=== PATIENT | female | born 1945 | race Caucasian/White ===

== ENCOUNTER 2019-05-11 19:14 | Inpatient (IN) | payer BC, MEDICAID ==
[~2019-05-11] VITALS: Ht 152.4 cm; Wt 72.6 kg
[2019-05-11 19:20] VITALS: BP 175/90
--- NOTE | 2019-05-11 19:21 | NUR ---
PT KIT ALS. TAKEN TO BED 11
--- NOTE | 2019-05-11 19:30 | NUR ---
PT BIBA C/O HEADACHE AND DIZZINESS X1 HR. PT STATES DIZZINESS UPON STANDING. DENIES BLURRED VISION. 8/10 ACHING PAIN. RR EVEN AND UNLABORED. PT CALM AND PLEASANT, SITTING IN BED POSITIONED FOR COMFORT. BED LOCKED AND IN LOW POSITION. VSS. MEDHX: HTN, AFIB, HLD ALLERGIES: NKA
[2019-05-11] MEDS ORDERED: MORPHINE SULFATE 2 MG/ML SYR IVP ONE (19:55)
[2019-05-11] MEDS ORDERED: ONDANSETRON 4 MG/2 ML VIAL IVP ONE (19:55)
[2019-05-11 20:18] LABS: BASOPHILS # (AUTO) 0.1 K/uL (0.00-0.22); EOSINOPHILS # (AUTO) 0.4 K/uL (0-0.4); HEMATOCRIT 33.8 % (36-48); HEMOGLOBIN 11.6 g/dL (12.0-16.0); LYMPHOCYTES # (AUTO) 2.9 K/uL (2.5-16.5); LYMPHOCYTES % (AUTO) 42.7 % (20.5-51.1); MEAN CORPUSCULAR HEMOGLOBIN 32 pg (27-31); MEAN CORPUSCULAR HGB CONC 34 g/dL (33-37); MEAN CORPUSCULAR VOLUME 92.9 fL (80-94); MONOCYTES # (AUTO) 0.6 K/uL (0.8-1.0); MONOCYTES % (AUTO) 8.6 % (1.7-9.3); NEUTROPHILS # (AUTO) 2.8 K/uL (1.8-7.7); NEUTROPHILS % (AUTO) 41.7 % (42.2-75.2); PLATELET COUNT (AUTO) 283 K/uL (140-450); RED BLOOD CELL COUNT(AUTO) 3.64 MIL/uL (4.20-5.40); WHITE BLOOD COUNT (AUTO) 6.8 K/uL (4.8-10.8)
--- NOTE | 2019-05-11 20:32 | NUR ---
PT STATES NO RELIEF OF PAIN AFTER MEDICATION. 8/10 PAIN.
--- NOTE | 2019-05-11 20:36 | NUR ---
PT TO CT VIA WHEELCHAIR.
--- NOTE | 2019-05-11 20:36 | NUR ---
PT TAKEN TO CT
[2019-05-11 20:48] LABS: POTASSIUM 4.1 mmol/L (3.5-5.1); SODIUM SERUM 127 mmol/L (136-145)
[2019-05-11 20:49] LABS: ANION GAP 10.4 (8-16); ASPARTATE AMINOTRANSFERASE 20 U/L (15-37); CARBON DIOXIDE 27.7 mmol/L (21-32); CHLORIDE 93 mmol/L (98-107); CREATININE 0.6 mg/dL (0.6-1.3); GLUCOSE 106 mg/dL (74-106); TOTAL BILIRUBIN 0.3 mg/dL (0.0-1.0); UREA NITROGEN, BLOOD 10 mg/dL (7-18)
[2019-05-11 20:50] LABS: ALBUMIN 3.5 g/dL (3.4-5.0); LIPASE 113 U/L (73-393)
[2019-05-11 21:00] LABS: CREATINE KINASE MB 1.1 ng/mL (0-3.6)
--- NOTE | 2019-05-11 21:10 | NUR ---
PT RESTING IN BED WITH EYES CLOSED, VISIBLE RISE AND FALL OF THE CHEST. PT DENIES DIZZINESS AT THIS TIME. VSS. WILL CONTINUE TO MONITOR.
[2019-05-11] MEDS ORDERED: NACL 0.9% 1,000 ML IV ONE (21:40)
[2019-05-11] MEDS ORDERED: ESCI10TA PO (21:58)
[2019-05-11] MEDS ORDERED: NAPR-54 PO (21:58)
[2019-05-11] MEDS ORDERED: PROP20TA29 PO (21:58)
[2019-05-11] MEDS ORDERED: AMLO5TAB PO (21:58)
[2019-05-11] MEDS ORDERED: ASPI-1718 PO (21:58)
[2019-05-11] MEDS ORDERED: LOVA20TA8 PO (21:58)
[2019-05-11] MEDS ORDERED: LOSA100T51 PO (21:58)
[2019-05-11] MEDS ORDERED: BENA20TA PO (21:58)
[2019-05-11] MEDS ORDERED: ACETAMINOPHEN 325 MG TAB PO PRN (22:30)
[2019-05-11] MEDS ORDERED: ONDANSETRON 4 MG/2 ML VIAL IM/IVP PRN (22:30)
[2019-05-11] MEDS ORDERED: HYDROcodone/APAP 7.5/325 MG 1 TAB PO PRN (22:30)
[2019-05-11] MEDS ORDERED: DOCUSATE SODIUM 100 MG GELCAP PO PRN (22:30)
[2019-05-11 22:40] VITALS: BP 149/70
--- NOTE | 2019-05-11 22:40 | NUR ---
RECEIVED PT FROM ER NURSE. PT CAME IN [facility] AND ABLE TO AMBULATE TO [facility] BED. FAMILY AT BEDSIDE. NO SOB NOTED. DENIES PAIN. IV SITE ON RAC, G20, PATENT, INTACT AND ASYMPTOMATIC. SKIN INTACT, WARM AND DRY TO TOUCH. MRSA SWAB DONE, VS CHECKED, WITHIN PT'S BASELINE. BOARD UPDATED, ORIENT ROOM TO PT. ENCOURAGE TO USE CALL LIGHT. BED IN LOW POSITION, CALL LIGHT WITHIN REACH. WILL CONTINUE TO MONITOR.
--- NOTE | 2019-05-11 22:52 | NUR ---
Patient will be admitted to care of DR ORELLANA. Admited to TELE. Will go to room 127B. Belongings list completed. Report to ANDRES IVEY.
[2019-05-11] MEDS: NACL 0.9% 1,000 ML IV SCH (23:23)
[2019-05-11] MEDS ORDERED: DONE5TAB34 PO (23:37)
[2019-05-11] MEDS ORDERED: VITD1000 PO (23:37)
[2019-05-11 23:40] LABS: APPEARANCE,URINE CLEAR (CLEAR); BILIRUBIN,URINE NEGATIVE (NEGATIVE); BLOOD, URINE TRACE-I (NEGATIVE); COLOR,URINE YELLOW (YELLOW); LEUKOCYTE ESTERASE ,URINE TRACE (NEGATIVE); NITRITE, URINE NEGATIVE (NEGATIVE); UGLUCOSE NEGATIVE (NEGATIVE)
[2019-05-11] MEDS ORDERED: MECLIZINE 25 MG TAB PO PRN (23:45)
[2019-05-11 23:57] LABS: PROTHROMBIN TIME 9.6 secs (10.8-13.4)
[2019-05-12] VITALS: BP 155/64
[2019-05-12 00:10] LABS: MAGNESIUM 1.8 mg/dL (1.8-2.4); PHOSPHORUS 4.2 mg/dL (2.5-4.9); THYROID STIMULATING HORMONE 0.82 uIU/mL (0.34-3.74)
--- NOTE | 2019-05-12 00:10 | NUR ---
VS CHECKED, WITHIN PT'S BASELINE. ASSISTED PT TO RESTROOM.
[2019-05-12 00:19] LABS: RBC,URINE 0-5 /HPF (0-5); WBC,URINE 0-5 /HPF (0-5)
[2019-05-12] MEDS ORDERED: cefTRIAXone 1,000 MG VIAL ONE (01:46)
--- NOTE | 2019-05-12 01:50 | NUR ---
GIVEN ROCEPHIN MD ORDERED. PT TOLERATED WELL.
--- NOTE | 2019-05-12 03:58 | NUR ---
VS CHECKED, WITHIN PT'S BASELINE, URINE SPECIMEN COLLECTED.
[2019-05-12 04:00] VITALS: BP 133/76
--- NOTE | 2019-05-12 05:56 | NUR ---
PT SLEEPING IN BED. NO ACUTE DISTRESS NOTED.
--- NOTE | 2019-05-12 06:54 | NUR ---
PT SLEEPING IN BED. NO ACUTE DISTRESS NOTED.
--- NOTE | 2019-05-12 07:05 | NUR ---
RECEIVED REPORT FROM SWITCHER NURSE LONI. PT AAOX2, NO C/O PAIN AT THIS TIME. IV ON RT AC 20 GA RUNNING IVF PER ORDER. RESPIRATIONS EVEN AND UNLABORED ON RA. ABD SOFT, ACTIVE BS, LBM 05/10. SKIN IS INTACT, WARM TO TOUCH. PT ON FALL RISK PRECAUTIONS, AMBULATE WITH ASSISTANCE, SAFETY MEASURES IN PLACE, CALL LIGHT WITHIN REACH.
[2019-05-12 07:23] LABS: BASOPHILS % (AUTO) 0.7 % (0.0-2.0); EOSINOPHILS # (AUTO) 0.4 K/uL (0-0.4); EOSINOPHILS % (AUTO) 6.8 % (0.0-4.0); HEMATOCRIT 33.7 % (36-48); HEMOGLOBIN 11.6 g/dL (12.0-16.0); LYMPHOCYTES # (AUTO) 2.3 K/uL (2.5-16.5); LYMPHOCYTES % (AUTO) 39.9 % (20.5-51.1); MEAN CORPUSCULAR HEMOGLOBIN 32 pg (27-31); MEAN CORPUSCULAR HGB CONC 35 g/dL (33-37); MEAN CORPUSCULAR VOLUME 93.5 fL (80-94); MONOCYTES # (AUTO) 0.5 K/uL (0.8-1.0); MONOCYTES % (AUTO) 8.2 % (1.7-9.3); NEUTROPHILS # (AUTO) 2.6 K/uL (1.8-7.7); NEUTROPHILS % (AUTO) 44.4 % (42.2-75.2); PLATELET COUNT (AUTO) 285 K/uL (140-450); RED CELL DISTRIBUTION WIDTH 13.2 % (11.6-13.7); WHITE BLOOD COUNT (AUTO) 5.8 K/uL (4.8-10.8)
[2019-05-12 08:00] VITALS: BP 154/64
--- NOTE | 2019-05-12 08:20 | NUR ---
PATIENT HAS BEEN SCREENED AND CATEGORIZED MODERATE NUTRITION RISK. PATIENT WILL BE SEEN WITHIN 3-5 DAYS OF ADMISSION. 05/14/19 05/16/[address]
[2019-05-12] MEDS: NACL 0.9% 1,000 ML IV SCH ×3 (08:30→21:35)
[2019-05-12] MEDS: ASPIRIN 81 MG TAB.CHEW PO SCH (08:33)
[2019-05-12] MEDS: LACTOBACILLUS RHAMNOSUS GG 1 EACH CAP PO SCH (08:33)
[2019-05-12] MEDS: PROPRANOLOL 20 MG TAB PO SCH ×2 (08:34→20:19)
[2019-05-12] MEDS: ESCITALOPRAM 20 MG TAB PO SCH (08:35)
[2019-05-12] MEDS: CHOLECALCIFEROL 1,000 IU TAB PO SCH (08:35)
[2019-05-12] MEDS: MORPHINE SULFATE 2 MG/ML SYR IVP PRN ×2 (08:40→16:02)
--- NOTE | 2019-05-12 08:40 | NUR ---
PT GIVEN MORNING MEDICATIONS PER ORDER, PT VERBALIZED UNDERSTANDING OF INDICATIONS AND POTENTIAL SIDE EFFECTS OF EACH MEDICATION. ALSO ADMINISTERED MORPHINE PER ORDER FOR LEVEL 8/10 HEADACHE, WILL REASSESS WITHIN 1 HOUR. IV ON RT AC 20 GA FLUSHING WITH NO RESISTANCE, DRESSING IS CLEAN, DRY AND INTACT.
--- NOTE | 2019-05-12 09:10 | NUR ---
ASSISTED PT TO THE RESTROOM TO VOID, GIVEN AARON CARE. PT IS WALKING WITH STEADY GAIT, WITH ASSISTANCE. WILL CONTINUE TO MONITOR.
[2019-05-12 09:50] LABS: MAGNESIUM 1.9 mg/dL (1.8-2.4); PHOSPHORUS 4.6 mg/dL (2.5-4.9)
[2019-05-12 10:57] LABS: CHOL/HDL RATIO 3.3 (1-4.5)
[2019-05-12 11:09] LABS: ANION GAP 8.7 (8-16); CARBON DIOXIDE 29.5 mmol/L (21-32); CHLORIDE 101 mmol/L (98-107); CREATININE 0.6 mg/dL (0.6-1.3); GLUCOSE 104 mg/dL (74-106); POTASSIUM 4.2 mmol/L (3.5-5.1); SODIUM SERUM 135 mmol/L (136-145); UREA NITROGEN, BLOOD 7 mg/dL (7-18)
--- NOTE | 2019-05-12 11:51 | NUR ---
STARTED BAG OF IVF. IV ON RT AC 20 GA CLEAN, DRY AND INTACT. NO C/O PAIN AT THIS TIME.
[2019-05-12 12:00] VITALS: BP 148/57
--- NOTE | 2019-05-12 12:45 | NUR ---
PT SITTING UP IN BED HAVING LUNCH, PT HAS NO SIGNS OF DISTRESS AT THIS TIME.
--- NOTE | 2019-05-12 13:55 | NUR ---
PT'S SON AT BEDSIDE. WILL REPORT TO PHYSICIAN PT/SON'S CONCERNS.
--- NOTE | 2019-05-12 14:14 | NUR ---
Deputy Sheriff Building Guard Assessment/Discharge Plan: Name: Harish Goldberg Home Relationship: son Pre-Admission Living Arrangements: Lives with Other Other: son: Harish Goldberg and Harish's (Lisa) Prior ADL Needs Assistance Current Home Health Name/Tel: N/A Current DME/02 Name/Tel: walker, no home O2 Current Hospice Name/Tel: N/A Current Dialysis Name/Tel: N/A Healthcare Decision Maker: Patient Advance Directive No Information Taught: Advance Directive Person Taught: Patient Teaching Tools: Computer Generated Print Verbal Factors Affecting Learning: None Participation Level: Active Evaluation: Gestures Understanding Verbalizes Understanding Educator: XIOMARA Acuna Discipline: Case Mgt/Social Svcs Tentative Discharge Plan Summary: Patient is a 73 year old female, admitted for headache, dizziness, and hyponatremia. I met with patient at bedside. Patient alert and oriented x4. Patient speaks Vincentian. Patient lives at home with her family and plans to return home upon discharge. Patient does not recall name of her pcp. Patient's son Harish assist her with ADLs she cannot complete independently. Harish also helps patient with transportation. Patient denied alcohol/substance abuse. Patient also denied hx of mental health. Deputy Sheriff Building Guard and/or Mathematics Faculty Member will follow up as needed. Signature: XIOMARA Acuna Date: May 12, 2019
--- NOTE | 2019-05-12 14:22 | NUR ---
DISCHARGE PLANNIN73 YEAR OLD FEMALE FROM HOME, WHO CAME IN DUE TO HEADACHE, DIZZINESS AND ELEVATED BLOOD. PAST MEDICAL HISTORY INCLUDE HTN AND ARTHRITIS. INITIAL DIAGNOSIS OF HEADACHE, DIZZINESS AND HYPONATREMIA. NA ON ADMISSION 127, TODAY 135. ON NS AT 100MLS/H. CXR SHOWED BIBASILAR SCARRING/ATELECTASIS. HEAD CT NEGATIVE. US ARTERIAL BLE SHOWED OCCLUDED RIGHT POSTERIOR TIBIAL ARTERY. VENOUS US OF BLE IS NEGATIVE FOR DVT. CAROTID US IS NEGATIVE. PENDING ECHOCARDIOGRAM AND PT. NO CONSULTS AT THIS TIME. DC PLAN IS PENDING ON PATIENT'S RESPONSE TO TREATMENT. Addendum: 05/13/19 at 1603 by Fatmata Godoy CM LATE ENTRY: 0905: RECEIVED AN ORDER FOR HOME HEALTH FOR PT AND HOME SAFETY EVAL. CONTACTED [facility] AT [phone], ABLE TO SPEAK TO EDDIE, SHE STATED [facility]T HERNANDEZ IS THE ONE DELEGATED SINCE PATIENT IS 42 MILES OUT OF AREA. CONTACTED EVERETT HERNANDEZ AT [phone], SPOKE TO MARYAM, SHE TRANSFERRED ME TO [phone] ABLE TO SPEAK TO LANDON, SHE STATED SHE HAVE TO TRANSFER ME TO ANOTHER PERSON AT [phone], SPOKE TO CHRISTINA, TRANSFERRED ME TO [place], WAS PLACED ON HOLD FOR 25 MINS AND THE CALL DROPPED. CONTACTED EVERETT HERNANDEZ AGAIN, SPOKE TO MARYAM, SHE STATED SHE HAS TO TRANSFER ME TO THE PROVIDER LINE AT [phone], SPOKE TO SHANNON LEMOS, SHE STATED SHE HAS TO TRANSFER ME TO [facility], SPOKE TO HOMER, HE STATED HE NEED TO TRANSFER ME TO SOMEONE WHO CAN HELP ME, ANSWERED BY ZAHIDA BACA [employer] DEPT, HE SAID HE HAS TO TRANSFER TO THE RIGHT DEPT. GOT TRANSFERRED TO [facility], SHE STATED SHE HAS TO TRANSFER ME TO [phone], I INFORMED HER THAT I HAD BEEN TRANSFERRED SO MANY TIMES, SHE SAID SHE WILL TRANSFER ME TO [phone], ABLE TO SPEAK TO MATHIEU Krishnan, SHE STATED IT SHOULD GO THROUGH [employer]. I TOLD HER I CONTACTED [facility] MANNING AND I SPOKE TO EDDIE AND SHE STATED THAT PATIENT IS 42 MILES OUT OF AREA. SHE STATED THEY ARE NOT CONTRACTED WITH ANY AGENCIES LONG IN NETWORK THEY ARE OK WITH IT. CONTACTED IAN PEREZ OF [facility] AT [phone], REGARDING REFERRAL. HE STATED TO GO AHEAD AND FAX REFERRAL TO [phone]. REFERRAL FAXED TO THE PROVIDED NUMBER. Addendum: 05/15/19 at 1216 by Bisi Carlisle CM DC PLANNING: RECEIVED A CALL FROM JOSE SHAY STATED NEEDS AUTHORIZATION FROM [employer], CALLED [employer] SR [phone] SPOKE WITH AD , PER AD CAN'T NO GIVE THE AUTH FOR [facility] ,THE CONTRACTED HOME HEALTH IS [facility] PHONE # [phone]. CALLED [facility] SPOKE WITH JOSE MAYA AT [phone] STATED HE WILL CONTACT AND TRANSFER THE CARE TO [facility].
[2019-05-12 16:00] VITALS: BP 135/66
--- NOTE | 2019-05-12 16:02 | NUR ---
ADMINISTERED MORPHINE PER ORDER FOR LEVEL 10/10 HEADACHE, WILL REASSESS WITHIN 1 HOUR.
--- NOTE | 2019-05-12 18:00 | NUR ---
PT SITTING UP IN BED HAVING DINNER, PT HAS NO C/O PAIN AT THIS TIME.
--- NOTE | 2019-05-12 19:10 | NUR ---
ENDORSED PT TO PRINCIPAL SYSTEM SOFTWARE ENGINEER NURSE YUNIEL. PT HAS NO SIGNS OF DISTRESS AT THIS TIME.
--- NOTE | 2019-05-12 19:11 | NUR ---
RECEIVED BEDSIDE REPORT FROM AM SHIFT NURSE. PT SITTING ON BED AWAKE AND ALERT WITH FAMILY MEMBER AT BEDSIDE. NO SOB OR DISTRESS NOTED. IV ACCESS ON RIGHT AC 20 GAUGE, PATENT AND INFUSING WELL. PT IS ON ROOM AIR. PT IS AMBULATORY WITH ASSIST. INITIAL ASSESSMENT DONE. BED IN LOW POSITION. CALL LIGHT WITHIN PATIENT REACH. WILL CONTINUE TO MONITOR PATIENT.
[2019-05-12 20:20] VITALS: BP 130/53
[2019-05-12] MEDS ORDERED: ATORVASTATIN 20 MG TAB PO SCH (21:00)
[2019-05-12] MEDS ORDERED: DONEPEZIL 10 MG TAB PO SCH (21:00)
[2019-05-12] MEDS ORDERED: FUROSEMIDE 20 MG/2 ML VIAL IVP SCH (21:00)
--- NOTE | 2019-05-12 23:02 | NUR ---
PATIENT TRIED TO GET OUT OF BED. ASSISTED PATIENT TO RESTROOM AT THIS TIME. NO SOB OR DISTRESS NOTED.
[2019-05-13] MEDS: MORPHINE SULFATE 2 MG/ML SYR IVP PRN (00:04)
[2019-05-13 00:20] VITALS: BP 165/71
--- NOTE | 2019-05-13 00:30 | NUR ---
VITAL SIGNS TAKEN AT THIS TIME. NO SOB OR DISTRESS NOTED. WILL CONTINUE TO MONITOR PATIENT.
--- NOTE | 2019-05-13 02:59 | NUR ---
IV ANTIBIOTIC ROCEPHIN STARTED AT THIS TIME. WILL CONTINUE TO MONITOR PATIENT.
--- NOTE | 2019-05-13 04:25 | NUR ---
VITAL SIGNS TAKEN AT THIS TIME. NO SOB OR DISTRESS NOTED. WILL CONTINUE TO MONITOR PATIENT.
[2019-05-13 04:30] VITALS: BP 131/57
[2019-05-13 06:20] LABS: ANION GAP 11.3 (8-16); CARBON DIOXIDE 29.5 mmol/L (21-32); CHLORIDE 99 mmol/L (98-107); CREATININE 0.6 mg/dL (0.6-1.3); GLUCOSE 102 mg/dL (74-106); POTASSIUM 3.8 mmol/L (3.5-5.1); SODIUM SERUM 136 mmol/L (136-145); UREA NITROGEN, BLOOD 6 mg/dL (7-18)
[2019-05-13 06:30] LABS: MAGNESIUM 1.8 mg/dL (1.8-2.4); PHOSPHORUS 4.3 mg/dL (2.5-4.9)
[2019-05-13 06:54] LABS: BASOPHILS # (AUTO) 0.1 K/uL (0.00-0.22); BASOPHILS % (AUTO) 0.8 % (0.0-2.0); EOSINOPHILS # (AUTO) 0.4 K/uL (0-0.4); EOSINOPHILS % (AUTO) 4.8 % (0.0-4.0); HEMOGLOBIN 11.2 g/dL (12.0-16.0); LYMPHOCYTES # (AUTO) 2.9 K/uL (2.5-16.5); LYMPHOCYTES % (AUTO) 34.7 % (20.5-51.1); MEAN CORPUSCULAR HEMOGLOBIN 32 pg (27-31); MEAN CORPUSCULAR HGB CONC 34 g/dL (33-37); MONOCYTES # (AUTO) 0.7 K/uL (0.8-1.0); MONOCYTES % (AUTO) 8.7 % (1.7-9.3); NEUTROPHILS # (AUTO) 4.2 K/uL (1.8-7.7); PLATELET COUNT (AUTO) 272 K/uL (140-450); RED BLOOD CELL COUNT(AUTO) 3.51 MIL/uL (4.20-5.40); RED CELL DISTRIBUTION WIDTH 13.3 % (11.6-13.7); WHITE BLOOD COUNT (AUTO) 8.3 K/uL (4.8-10.8)
--- NOTE | 2019-05-13 07:00 | NUR ---
PT IN STABLE CONDITION. CALL LIGHT WITHIN PATIENT REACH. WILL ENDORSE TO AM SHIFT NURSE FOR CONTINUITY OF CARE.
--- NOTE | 2019-05-13 07:12 | NUR ---
RECEIVE REPORT FROM NIGHT NURSE. PT IS ASLEEP AND STABLE, RESPIRATION ARE EVEN AND UNLABORED ON ROOM AIR. IV AT 30 ML/HR, NS. BED ALARM ON. SIDE RAILS UP. CALL LIGHT WITHIN REACH.
[2019-05-13 08:00] VITALS: BP 117/69
[2019-05-13] MEDS ORDERED: FUROSEMIDE 20 MG/2 ML VIAL IVP SCH (09:00)
[2019-05-13] MEDS ORDERED: POTA8TER12 PO (09:22)
[2019-05-13] MEDS ORDERED: FURO-572 PO (09:22)
[2019-05-13] MEDS ORDERED: CELE100C PO (09:22)
[2019-05-13] MEDS ORDERED: FAMO-90 PO (09:22)
--- NOTE | 2019-05-13 09:30 | NUR ---
ASSISTED PT TO USE BED TORIBIO. PT WAS ABLE TO USE IT WITHOUT DIFFICULT. PT IS STABLE WITHOUT ANY SIGNS OF DISTRESS AND RESPIRATIONS ARE EVEN AND UNLABORED ON ROOM AIR. CALL LIGHT WITHIN REACH. BED ALARM ON.
[2019-05-13] MEDS: ESCITALOPRAM 20 MG TAB PO SCH (09:50)
[2019-05-13] MEDS: PROPRANOLOL 20 MG TAB PO SCH (09:51)
[2019-05-13] MEDS: LACTOBACILLUS RHAMNOSUS GG 1 EACH CAP PO SCH (09:51)
[2019-05-13] MEDS: CHOLECALCIFEROL 1,000 IU TAB PO SCH (09:51)
[2019-05-13] MEDS: ASPIRIN 81 MG TAB.CHEW PO SCH (09:54)
[2019-05-13 10:06] LABS: FOLIC ACID 12.6 ng/mL (>3.0)
[2019-05-13 12:00] VITALS: BP 138/72
--- NOTE | 2019-05-13 13:00 | NUR ---
ASSISTED PT TO BED TORIBIO. PT TOLERATED IT WELL. PT FAMILY IN THE ROOM WITH PT. PT'S RESPIRATION ARE EVEN AND UNLABORED ON ROOM AIR. BED ALARM ON. CALL LIGHT WITHIN REACH.
--- NOTE | 2019-05-13 14:00 | NUR ---
GAVE DISCHARGE INSTRUCTIONS AND WHERE TO ICE CREAM VAULT WORKER MEDICATIONS FROM HOME PHARMACY, TO PT AND SON PARTH CHESTER, BOTH VERBALIZED UNDERSTANDING OF INSTRUCTIONS. IV REMOVED, LUMEN INTACT. ID BANDS REMOVED. ASSISTED DRESSING PT. WHEELED PT TO LOBBY IN STABLE CONDITION WHERE FAMILY WAS WAITING WITH VEHICLE.
== END 2019-05-13 14:00 | disposition home or self-care (01) | DRG 77 ==
LOC: MED 19:14 → MMU 22:33
PROVIDERS: ADMIT General Practice; ATTEND General Practice
DX: I67.4 Hypertensive encephalopathy (principal); I50.43 Acute on chronic combined systolic (congestive) and diastolic (congestive) heart failure; E87.1 Hypo-osmolality and hyponatremia; N39.0 Urinary tract infection, site not specified; J98.11 Atelectasis; G90.8 Other disorders of autonomic nervous system; I11.0 Hypertensive heart disease with heart failure; I48.91 Unspecified atrial fibrillation; E11.9 Type 2 diabetes mellitus without complications; E78.5 Hyperlipidemia, unspecified; E86.0 Dehydration; F41.9 Anxiety disorder, unspecified; F32.9 Major depressive disorder, single episode, unspecified; F03.90 Unspecified dementia, unspecified severity, without behavioral disturbance, psychotic disturbance, mood disturbance, and anxiety; M19.041 Primary osteoarthritis, right hand; Z79.899 Other long term (current) drug therapy
CPT/HCPCS: 36415; 70450; 71045; 73130; 80048; 80053; 81001; 82550; 82553; 82607; 82746; 83036; 83540; 83690; 83735; 83880; 84100; 84295; 84443; 84484; 85025; 85045; 85610; 85730; 87081; 87086; 93005; 93880; 93925; 93970; 96361; 96374; 96375; 97110; 97112; 97116; 97530; 99285; J0696; J1644; J1940; J2270; J2405; J7030; J7060; Q0092